=== PATIENT | male | born 2000 | race Caucasian/White ===

== ENCOUNTER 2022-11-13 15:43 | Outpatient (CLI) | payer MEDICAID, SELFPAY | END 2022-11-13 15:44 | disposition home or self-care (01) | LOC: AMB 11-16 11:26 | PROVIDERS: PCP Student in an Organized Health Care Education/Training Program; Visit Provider Family Medicine | DX: R07.89 Other chest pain (principal) | CPT/HCPCS: A0425; A0427 ==

== ENCOUNTER 2022-11-13 16:12 | Emergency (ER) | payer MEDICAID, SELFPAY ==
[2022-11-13] VITALS (12 sets, daily range): BP systolic 100–109; BP diastolic 50–60; PULSE 62–81; RESP 16; O2SAT 91–98; BMI 29.9
--- NOTE | 2022-11-13 16:31 | ED.CHESTPAIN ---
HPI - Chest Pain General Chief Complaint: Chest Pain Stated Complaint: Cardiac Time Seen by Provider: 11/13/22 16:14 History of Present Illness HPI narrative: This 22-year-old male comes in reporting brief episodes of chest pain starting today. He states that they last just a few seconds. They have been happening more frequently and this triggers worry for him as he does have a heart history. A couple years ago he was having chest pain and his troponin bumped up a little bit. 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 He did have a single-vessel bypass at that time and he states that he has been doing really well since then. In fact he has run a couple half marathons and is typically running and biking regularly. He does this without any symptoms. Today there is no associated symptoms with his brief chest pain. He denies having any nausea, vomiting, lightheadedness, shortness of breath, diaphoresis. He states that he is due to have an echocardiogram but this is not happened as he did not have insurance in place for a while and now he is missed several appointments due to his own fault as he states that. Related Data Home Medications Medication Instructions Recorded Confirmed aspirin 81 mg tablet,delayed 81 mg PO DAILY 11/13/22 11/13/22 release cyclobenzaprine 10 mg tablet 10 mg PO 3XD PRN muscle spasm 11/13/22 11/13/22 metoprolol succinate 50 mg 50 mg PO DAILY 11/13/22 11/13/22 tablet,extended release 24 hr sertraline 100 mg tablet 100 mg PO DAILY 11/13/22 11/13/22 Allergies Allergy/AdvReac Type Severity Reaction Status Date / Time bee venom protein (honey bee) Allergy Mild edema Verified 11/13/22 16:21 Review of Systems Status of ROS Reports: 10 or more systems reviewed and unremarkable except as noted in History and below Narrative Constitutional: No fevers, no weight gain or loss. Eyes: No discharge. No vision changes. HENT: No congestion, no sore throat, no ear pain. Cardiovascular: No palpitations. Chest discomfort as described above. Respiratory: No shortness of breath, no wheezes, no cough. Gastrointestinal: No abdominal pain, no vomiting, no diarrhea. Genitourinary: No dysuria, no hematuria. Musculoskeletal: Normal range of motion. Skin: No rashes, no pruritis. Neurological: No dizziness, weakness, sensory change, speech change. Endo/Heme/Allergies: No bruising or bleeding. No polydipsia. Pysch: no suicidality, no anxiety, no insomnia. All other systems reviewed and are negative. Exam Narrative Exam Narrative: Constitutional: Well-developed, well-nourished, no acute distress. HEENT: Normocephalic, atraumatic. Neck: Normal range of motion. Nontender. Supple. Heart: Regular. No murmurs. Normal rate. Intact distal pulses. Lungs: Clear to auscultation. No chest discomfort. No wheezes, rhonchi, or rales. Abdomen: Normal bowel sounds. Nontender. No rebound tenderness. Genitalia: Deferred. Back: No midline tenderness. Normal range of motion. Extremities: Normal range of motion. No injury. Skin: Intact. No rash. Warm. No erythema or pallor. Neurologic: No altered sensation. No weakness. Alert and oriented. Psychiatric: No suicidality. No depression. No insomnia. He states that he has been under more stress recently. Nursing notes and vitals signs are reviewed. Const Vital Signs, click to edit/add: Vital Signs - 24 hr 11/13/22 16:15 11/13/22 16:16 11/13/22 16:17 Pulse Rate 79 76 Pulse Rate [Pulse Oximeter] 81 Respiratory Rate 16 Blood Pressure 109/58 L Blood Pressure [Left Upper Arm] 109/58 L Pulse Oximetry 95 94 95 Oxygen Delivery Method Room Air 11/13/22 16:30 Pulse Rate 73 Pulse Rate [Pulse Oximeter] Respiratory Rate Blood Pressure Blood Pressure [Left Upper Arm] Pulse Oximetry 98 Oxygen Delivery Method Course Vital Signs Vital signs: Initial Vital Signs Pulse Rate 81 11/13/22 16:15 Pulse Rhythm Regular 11/13/22 16:15 Pulse Strength 3+ Normal 11/13/22 16:15 Respiratory Rate 16 11/13/22 16:15 Blood Pressure 109/58 L 11/13/22 16:15 Blood Pressure Mean 75 11/13/22 16:15 Blood Pressure Position Semi-Fowlers 11/13/22 16:15 Pulse Oximetry 95 11/13/22 16:15 Oxygen Delivery Method Room Air 11/13/22 16:15 Vital Signs Pulse Rate 81 11/13/22 16:15 Respiratory Rate 16 11/13/22 16:15 Blood Pressure 109/58 L 11/13/22 16:15 Pulse Oximetry 95 11/13/22 16:15 Oxygen Delivery Method Room Air 11/13/22 16:15 Pulse Rate 73 11/13/22 16:30 Respiratory Rate 16 11/13/22 16:15 Blood Pressure 109/58 L 11/13/22 16:17 Pulse Oximetry 98 11/13/22 16:30 Oxygen Delivery Method Room Air 11/13/22 16:15 MDM - Chest Pain MDM Narrative Medical decision making narrative: This 22-year-old male comes in reporting brief episodes of chest pain. He does have a history of single-vessel coronary artery bypass related to a dissection that occurred more than a couple years ago. Since then he has recovered and states that he has run a couple half marathons and loves to go out and run and ride bike. He does not have any exercise intolerance. He does not have any associated symptoms. Given his past history however he is rather worried about these brief episodes of chest discomfort lasting a few seconds. EKG today shows normal sinus rhythm. Lab results also returned with normal findings including a troponin at 0. I did use bedside ultrasound for screening views of his heart. This was very reassuring to him and images are captured showing normal findings of cardiac activity. At the time of discharge the patient appears safe for outpatient management. The treatment plan is reviewed along with written and verbal return precautions. Reasons to return and the importance of close followup were also reviewed. Lab Data Labs: Lab Results 11/13/22 11/13/22 Range/Units 16:27 16:31 WBC 8.48 (4.50-11.00) K/uL RBC 4.76 (4.30-5.90) m/uL Hgb 14.0 (13.5-17.5) gm/dL Hct 40.3 (37.0-53.0) % MCV 85 (80-100) fL MCH 29 (26-34) pg MCHC 35 (32-36) gm/dL RDW Coeff of Kelly 11.4 L (11.5-15.5) % Plt Count 253 (140-440) K/uL Neut % (Auto) 59.5 (42.0-72.0) % Lymph % (Auto) 32.0 (20-44) % [place] % (Auto) 5.7 (0.0-11.0) % Eos % (Auto) 2.2 (0.0-7.0) % Baso % (Auto) 0.5 (0.0-3.0) % Neut # (Auto) 5.00 (1.7-7.0) K/uL Lymph # (Auto) 2.70 (0.90-2.90) K/uL [place] # (Auto) 0.50 (0.00-0.90) K/UL Eos # (Auto) 0.20 (0.00-0.50) K/uL Baso # (Auto) 0.00 (0.00-0.30) K/uL Sodium 139 (135-149) mmol/L Potassium 3.7 (3.6-5.1) mmol/L Chloride 107 (96-114) mmol/L Carbon Dioxide 26 (20-32) mmol/L BUN 18 (5-24) mg/dL Creatinine 0.9 (0.5-1.5) mg/dL Estimated Creat Clear 114.21 Estimated GFR 122 ml/min Glucose 91 (60-115) mg/dL Calcium 8.9 (8.4-10.6) mg/dL POC Troponin I 0.00 L (0.01-0.04) ng/ml ECG Data Attestation: I personally reviewed and interpreted this ECG as follows: Interpretation: Normal sinus rhythm. Rate is 76 beats per minute. There are no ST or T-wave abnormalities. Discharge Plan Discharge Clinical Impression: Atypical chest pain Patient Disposition: Home, Self-Care Condition: Stable Additional Instructions: Continue current plans. Follow up with MD or return if worsening. Prescriptions: No Action cyclobenzaprine 10 mg tablet 10 mg PO 3XD PRN (Reason: muscle spasm) metoprolol succinate 50 mg tablet extended release 24 hr 50 mg PO DAILY sertraline 100 mg tablet 100 mg PO DAILY aspirin 81 mg tablet,delayed release (DR/EC) 81 mg PO DAILY Follow Up/Referrals: Provider,Not a Local [Referring] - Stand Alone Forms: [facility] Info Instructions
[2022-11-13 17:00] LABS: Red Blood Count 4.76 m/uL (4.30-5.90); White Blood Count* 8.48 K/uL (4.50-11.00)
[2022-11-13 17:01] LABS: Basophils Percent Auto 0.5 % (0.0-3.0); Eosinophils Percent Auto 2.2 % (0.0-7.0); Hematocrit 40.3 % (37.0-53.0); Immature Granulocytes Pct Auto 0.1 %; Mean Corpuscular HGB Conc 35 gm/dL (32-36); Mean Corpuscular Hemoglobin 29 pg (26-34); Mean Corpuscular Volume 85 fL (80-100); Monocytes Percent Auto 5.7 % (0.0-11.0); Neutrophils Percent Auto 59.5 % (42.0-72.0); Platelet Count* 253 K/uL (140-440); RDW Coefficient of Variation % 11.4 % (11.5-15.5)
[2022-11-13 17:02] LABS: Slide Review Reflex No
[2022-11-13 17:15] LABS: Chloride* 107 mmol/L (96-114); Potassium* 3.7 mmol/L (3.6-5.1); Sodium* 139 mmol/L (135-149)
[2022-11-13 17:18] LABS: Carbon Dioxide* 26 mmol/L (20-32); Creatinine* 0.9 mg/dL (0.5-1.5); Est. Creatinine Clearance* 114.21; Estimated Glomerular Filt Rate 122 ml/min
[2022-11-13 17:19] LABS: Blood Urea Nitrogen* 18 mg/dL (5-24); Calcium* 8.9 mg/dL (8.4-10.6); Glucose* 91 mg/dL (60-115)
== END 2022-11-13 18:14 | disposition home or self-care (01) ==
PROVIDERS: Emergency Provider Emergency Medicine Emergency Medical Services; PCP Student in an Organized Health Care Education/Training Program
DX: R07.89 Other chest pain (principal)
CPT/HCPCS: 36415; 76604; 76705; 80048; 84484; 85025; 93005; 93308; 99284; 99285

== ENCOUNTER 2023-08-30 14:53 | Outpatient (CLI) | payer BC, SELFPAY ==
--- NOTE | 2023-08-30 15:00 | CRLHL7_ITS ---
For Patients: As a result of the Century Cures Act, medical imaging exams and procedure reports are released immediately into your electronic medical record. You may view this report before your referring provider. If you have questions, please contact your health care provider. INDICATION: Left ankle pain, warm to touch TECHNIQUE: Ultrasound venous duplex lower left extremity. Compression venous exam was performed using estrada-scale, color Doppler, and spectral Doppler analysis. COMPARISON: None. FINDINGS: Sonographic imaging demonstrates the left common femoral, deep femoral, superficial femoral, popliteal, posterior tibial and greater saphenous and the contralateral right common femoral veins to be fully compressible with normal color Doppler blood flow. IMPRESSION: Normal left lower extremity venous ultrasound, no sign of deep venous thrombosis. Dictated by Fran Roberto MD @ 08/30/2023 3:44:56 PM (Electronically Signed)
== END 2023-08-30 14:54 | disposition home or self-care (01) ==
PROVIDERS: PCP Student in an Organized Health Care Education/Training Program; Visit Provider Orthopaedic Surgery
DX: M25.572 Pain in left ankle and joints of left foot (principal); I82.402 Acute embolism and thrombosis of unspecified deep veins of left lower extremity
CPT/HCPCS: 93971

== ENCOUNTER 2023-09-27 05:14 | Emergency (ER) | payer BC, SELFPAY ==
[2023-09-27 05:21] VITALS: BP 124/62; PULSE 84; RESP 20; TEMP 36.9; O2SAT 99; BMI 27.2
--- NOTE | 2023-09-27 05:24 | ED.LOWEXIN ---
HPI - Extremity Injury (Lower) General Time Seen by Provider: 05:24 Date Seen: 09/27/23 Chief Complaint: Extremity Pain/Injury, Lower Stated Complaint: Left leg pain Time Seen by Provider: 09/27/23 05:24 Source: patient, RN notes reviewed and old records reviewed Mode of arrival: ambulatory Limitations: no limitations History of Present Illness HPI Narrative: 23-year-old male who comes in today with left knee pain. Patient had pain in the left leg from the toe to the knee about a month ago, ultrasound was done that did not demonstrate any DVT and patient is diagnosed with superficial thrombophlebitis. Patient presents today with couple of days of left knee pain. No known injury. Pain is worse with walking and also when he extends the knee. Denies chest pain or shortness of breath. He reports a history of ASD and heart surgery to repair this in the past. Related Data Home Medications Medication Instructions Recorded Confirmed aspirin 81 mg tablet,delayed 81 mg PO DAILY 11/13/22 09/27/23 release metoprolol succinate 50 mg 50 mg PO DAILY 11/13/22 09/27/23 tablet,extended release 24 hr sertraline 100 mg tablet 100 mg PO DAILY 11/13/22 09/27/23 Allergies Allergy/AdvReac Type Severity Reaction Status Date / Time bee venom protein (honey bee) Allergy Mild edema Verified 09/27/23 05:23 [facility] [place] Surgical History Heart attack ?I21.9 - Acute myocardial infarction, unspecified (ICD-10) Social History Smoking Status: Never smoker How often do you have a drink containing alcohol: never How often do you have six or more drinks on one occasion: Never AUDIT-C Alcohol total score: 0 Non-prescribed substance use: denies use Exam Narrative: Exam Narrative: General: well nourished , NAD Head: Atraumatic and normocephalic ENT: External ears and external nose are normal Eyes: Conjunctiva clear, pupils are equal reactive, external ocular motions are intact Neck: Full spontaneous range of motion of the neck Lungs: No respiratory distress Musculoskeletal: Tenderness of the medial knee just inferior to the joint line and just distal to this. Pain with lateral loading of the knee. No joint effusion. Neurologic: No gross focal neurologic deficits Skin: No rashes Psych: Mood and affect are appropriate Const: Vital Signs, click to edit/add: Vital Signs - 24 hr 09/27/23 05:21 09/27/23 05:21 Temperature 98.5 F Pulse Rate [Left D orsalis Pedis] 84 Pulse Rate [Right Pulse Oximeter] 84 Respiratory Rate 20 Blood Pressure [Ri ght Upper Arm] 124/62 Pulse Oximetry 99 Oxygen Delivery Me thod Room Air Course Course ED Course: Patient seen and examined, prior records are reviewed. Patient presents with left knee pain. He has medial knee pain along the distal MCL as well as pain with lateral load to the knee. Symptoms are most consistent with musculoskeletal pain, patient is concerned about DVT and so ultrasound is ordered but clinically this seems unlikely. If ultrasound negative, patient can be discharged with weight-bearing as tolerated, Tylenol ibuprofen as needed for pain, and physical therapy. Reevaluation(s) Time of Reevaluation #1: 07:27 Reevaluation #1: Ultrasound negative for SVT your DVT. Symptoms are most consistent with musculoskeletal strain and pain. Patient will be referred to Orthopedics, consider further imaging if symptoms persist or initiation of physical therapy Vital Signs Vital signs: Initial Vital Signs Temperature 98.5 F 09/27/23 05:21 Temperature Source Temporal Artery Scan 09/27/23 05:21 Pulse Rate 84 09/27/23 05:21 Respiratory Rate 20 09/27/23 05:21 Blood Pressure 124/62 09/27/23 05:21 Blood Pressure Mean 82 09/27/23 05:21 Blood Pressure Position Sitting 09/27/23 05:21 Pulse Oximetry 99 09/27/23 05:21 Oxygen Delivery Method Room Air 09/27/23 05:21 Vital Signs Temperature 98.5 F 09/27/23 05:21 Pulse Rate 84 09/27/23 05:21 Respiratory Rate 20 09/27/23 05:21 Blood Pressure 124/62 09/27/23 05:21 Pulse Oximetry 99 09/27/23 05:21 Oxygen Delivery Method Room Air 09/27/23 05:21 Temperature 98.5 F 09/27/23 05:21 Pulse Rate 84 09/27/23 05:21 Respiratory Rate 20 09/27/23 05:21 Blood Pressure 124/62 09/27/23 05:21 Pulse Oximetry 99 09/27/23 05:21 Oxygen Delivery Method Room Air 09/27/23 05:21 Discharge Plan Discharge Clinical Impression: Lower leg pain, Knee MCL sprain Patient Disposition: Home, Self-Care Condition: Stable Instructions: Knee Sprain (DC) Additional Instructions: Ice 15-20 minutes every 3-4 hours while awake, ice before and after active Tylenol and ibuprofen as needed for pain Follow-up with the orthopedic clinic, call [phone] for an appointment Activity Level: Activity as Tolerated Prescriptions: No Action metoprolol succinate 50 mg tablet extended release 24 hr 50 mg PO DAILY sertraline 100 mg tablet 100 mg PO DAILY aspirin 81 mg tablet,delayed release (DR/EC) 81 mg PO DAILY Follow Up/Referrals: [place] BEY DO [Primary Care Provider] - Stand Alone Forms: [employer] [facility] Info Instructions
--- NOTE | 2023-09-27 05:33 | US_ITS ---
Patient: JANET LESTER Facility:?[facility] Patient ID:?[id number] Site Patient ID:?[id number]. Site :?[id number] Study:?US-Extremity Left LEV LT-09/27/2023 7:31:09 AM Ordering Physician:?CAYETANO RODRIGUEZ Final Report: INDICATION: Left calf pain and swelling COMPARISON: None available. FINDINGS: Ultrasound of the venous drainage of the left lower extremity shows no evidence of deep venous thrombosis. There is normal antegrade flow from the posterior tibial and popliteal veins superiorly through the common femoral vein. There is normal augmentation and compressibility of these veins. The right common femoral vein is widely patent. IMPRESSION: No evidence of deep venous thrombosis on ultrasound examination of the left lower extremity. Dictated by Hugo Aguero MD @ 09/27/2023 7:38:17 AM Signed by:?Hugo Aguero MD @09/27/2023 7:38:17 AM (Electronic Signature)
== END 2023-09-27 07:35 | disposition home or self-care (01) ==
PROVIDERS: Emergency Provider Family Medicine; PCP Student in an Organized Health Care Education/Training Program
DX: S83.8X2A Sprain of other specified parts of left knee, initial encounter (principal); M79.662 Pain in left lower leg
CPT/HCPCS: 93971; 99283; 99284